=== PATIENT | male | born 1995 | race Two or more races ===

== ENCOUNTER 2019-07-19 12:44 | Emergency (ER) | payer SELFPAY ==
[~2019-07-19] VITALS: Ht 190.5 cm; Wt 118.2 kg
[2019-07-19] MEDS ORDERED: LIDOCAINE/PF 1% 5 ML VIAL INJ ONE (13:30)
[2019-07-19] MEDS ORDERED: BACITRACIN 0.9 GM PACKET OINTMENT TP ONE (13:30)
[2019-07-19] MEDS ORDERED: PERTUSS(ACELL),DIPH,TET VAC/PF 0.5 ML VIAL IM ONE (13:30)
[2019-07-19 14:51] VITALS: BP 124/79
== END 2019-07-19 14:53 | disposition home or self-care (01) ==
LOC: EMS 12:47
DX: S61.211A Laceration without foreign body of left index finger without damage to nail, initial encounter (principal); F12.90 Cannabis use, unspecified, uncomplicated; W26.0XXA Contact with knife, initial encounter; Y93.89 Activity, other specified; Y92.89 Other specified places as the place of occurrence of the external cause; Y99.0 Civilian activity done for income or pay
CPT/HCPCS: 12002; 73130; 90471; 90715; 99283; J2001

== ENCOUNTER 2019-08-02 16:14 | Emergency (ER) | payer OTHER ==
[~2019-08-02] VITALS: Ht 182.9 cm; Wt 100.0 kg
[2019-08-02 16:45] VITALS: BP 122/77
== END 2019-08-02 17:08 | disposition home or self-care (01) ==
LOC: EMS 16:17
DX: S61.211D Laceration without foreign body of left index finger without damage to nail, subsequent encounter (principal); R03.0 Elevated blood-pressure reading, without diagnosis of hypertension; F12.90 Cannabis use, unspecified, uncomplicated; X58.XXXD Exposure to other specified factors, subsequent encounter